=== PATIENT | male | born 1960 | race Two or more races ===

== ENCOUNTER → 2021-03-13 | Day surgery (SDC) | payer OTHER | END | disposition home or self-care (01) | LOC: ADM 03-11 15:15 → AMB-ENDOS 06:58 | PROVIDERS: ATTEND Colon & Rectal Surgery | DX: D12.0 Benign neoplasm of cecum (principal); D12.4 Benign neoplasm of descending colon; D12.5 Benign neoplasm of sigmoid colon; D12.8 Benign neoplasm of rectum; K64.8 Other hemorrhoids; Z20.822 Contact with and (suspected) exposure to COVID-19 ==

== ENCOUNTER 2023-01-07 09:10 | Day surgery (SDC) | payer OTHER | END 2023-01-07 15:15 | disposition home or self-care (01) | LOC: AMB-ENDOS 09:10 | PROVIDERS: ATTEND Colon & Rectal Surgery | DX: D12.5 Benign neoplasm of sigmoid colon (principal); K57.30 Diverticulosis of large intestine without perforation or abscess without bleeding; K64.8 Other hemorrhoids; Z20.822 Contact with and (suspected) exposure to COVID-19 ==